=== PATIENT | female | born 1965 | race Caucasian/White ===

== ENCOUNTER 2018-08-30 12:14 | Day surgery (SDC) | payer OTHER ==
[~2018-08-30] VITALS: Ht 160 cm; Wt 111.1 kg
[~2018-08-30 12:14] MED LIST: BUPR150ER PO; HYDACE25S PR; LISI20 PO; Multivitamin1 EAC1 PO; Prinivil10 MG PO; Toprol Xl50 MG PO
== END 2018-08-30 14:32 | disposition home or self-care (01) ==
LOC: ORSCSDS 12:14
PROVIDERS: Internal Medicine Gastroenterology
PROC: 0DBM8ZX Excision of Descending Colon, Via Natural or Artificial Opening Endoscopic, Diagnostic (ICD-10-PCS; principal; 2018-08-30 13:45)
PROC: 0DBE8ZX Excision of Large Intestine, Via Natural or Artificial Opening Endoscopic, Diagnostic (ICD-10-PCS; principal; 2018-08-30 13:45)
DX: R19.4 Change in bowel habit (principal); D12.4 Benign neoplasm of descending colon; K64.8 Other hemorrhoids; K57.30 Diverticulosis of large intestine without perforation or abscess without bleeding; Z83.71 Family history of colonic polyps; E78.00 Pure hypercholesterolemia, unspecified; I10 Essential (primary) hypertension; E66.01 Morbid (severe) obesity due to excess calories; Z68.41 Body mass index [BMI] 40.0-44.9, adult; F17.210 Nicotine dependence, cigarettes, uncomplicated; Z79.899 Other long term (current) drug therapy
CPT/HCPCS: 88305; J7120

== ENCOUNTER 2021-11-20 10:48 | Inpatient (IN) | payer OTHER ==
[~2021-11-20] VITALS: Ht 162.6 cm; Wt 48.9 kg
[~2021-11-20 10:48] MED LIST changes: -LISI20 PO
[2021-11-20 11:28] LABS: Source, Urine Fem Cath
[2021-11-20 11:31] LABS: Appearance, Urine Clear (Clear); Blood, Urine 1+ (Neg); Color, Urine Amber (P-Yellow); Glucose Qualitative, Urine Neg (Neg); Ketones, Urine 2+ (Neg); Leukocyte Esterase, Urine 1+ (Neg); Nitrite, Urine Neg (Neg); Protein, Urine 2+ (Neg); Specific Gravity, Urine 1.025 (1.003-1.022); Urobilinogen, Urine 2+ (Normal)
[2021-11-20 11:44] LABS: Alanine Aminotransfer (ALT/SGP 37 U/L (12-78); Albumin, Blood 2.5 g/dL (3.4-5.0); Albumin/Globulin Ratio 0.7 (0.8-1.8); Alk Phos 75 U/L (50-136); Anion Gap 10 mmol/L (6-16); Aspartate Aminotrans (AST/SGOT 45 U/L (12-37); Bilirubin, Total 1.5 mg/dL (0.1-1.0); Blood Urea Nitrogen 20 mg/dL (8-24); Bun/Creatinine Ratio 36.4 (12.0-20.0); CO2, Blood 25 mmol/L (21-32); Calcium, Blood 9.3 mg/dL (8.5-10.1); Chloride, Blood 109 mmol/L (98-108); Creatinine, Blood 0.55 mg/dL (0.40-1.00); Ethanol (Alcohol), Blood, Med <3 mg/dL; Globulin, Blood 3.6 g/dL (2.2-4.0); Glomerular Filtration Rate >60 (60-); Glucose, Blood 83 mg/dL (70-99); Potassium, Blood 3.3 mmol/L (3.5-5.5); Sodium, Blood 144 mmol/L (136-145); Total Protein, Blood 6.1 g/dL (6.4-8.2)
[2021-11-20 12:00] LABS: Bilirubin, Urine 2+ (Neg)
[2021-11-20 12:04] LABS: Bacteria Rare /hpf; Red Blood Cells, Urine 0-2 /hpf (0-2); Squamous Epithelial Cells Few /hpf (Few)
[2021-11-20 12:05] LABS: Mucus Light (0-Heavy)
[2021-11-20 12:37] LABS: U Amphetamine Screen Not Detected; U Barbituate Screen Not Detected; U Benzodiazapine Screen Not Detected; U Buprenorphine Screen Not Detected; U Cannabinoids Screen DETECTED; U Cocaine Screen Not Detected; U Methadone Screen Not Detected; U Methamphetamine Screen Not Detected; U Opiates Screen Not Detected; U Oxycodone Screen Not Detected; U Phencyclidine Screen Not Detected; U Propoxyphene Screen Not Detected
[2021-11-20 13:05] LABS: Influenza A, PCR NEGATIVE (NEGATIVE); Influenza B, PCR NEGATIVE (NEGATIVE); Resp Syncytial Virus, PCR NEGATIVE (NEGATIVE)
[2021-11-20 13:09] LABS: SARS-Cov-2 (COVID-19) PCR, MMC POSITIVE (NEGATIVE)
[2021-11-20 13:10] LABS: BASOPHILS ABSOLUTE AUTO 0.03 K/mm3 (0.00-0.23); BASOPHILS PERCENT AUTO 1 % (0-2); EOSINOPHILS ABSOLUTE AUTO 0.04 K/mm3 (0.00-0.68); EOSINOPHILS PERCENT AUTO 1 % (0-6); Hematocrit 31.2 % (33.0-51.0); Hemoglobin 10.6 g/dL (11.5-16.0); IMMATURE GRAN ABSOLUTE AUTO 0.02 K/mm3 (0.00-0.10); IMMATURE GRAN PERCENT AUTO 0 % (0-1); LYMPHOCYTES ABSOLUTE AUTO 0.94 K/mm3 (0.84-5.20); LYMPHOCYTES PERCENT AUTO 15 % (21-46); MONOCYTES ABSOLUTE AUTO 0.52 K/mm3 (0.16-1.47); MONOCYTES PERCENT AUTO 9 % (4-13); Mean Corpuscular HGB 36.2 pg (26.0-34.0); Mean Corpuscular Volume 107 fL (80-100); Mean Platelet Volume 9.6 fL (9.1-12.4); NEUTROPHILS ABSOLUTE AUTO 4.56 K/mm3 (1.96-9.15); NEUTROPHILS PERCENT AUTO 75 % (41-73); Platelet Count 189 K/mm3 (150-400); Red Blood Cell Count 2.93 M/mm3 (3.80-5.20); White Blood Cell Count 6.11 K/mm3 (4.00-11.30)
[2021-11-20 13:20] LABS: Thyroid Stimulating Hormone 1.72 uIU/mL (0.360-4.800)
[2021-11-20 13:54] LABS: International Normalized Ratio 0.98; Prothrombin Time Results 10.3 Sec (9.7-11.5)
--- NOTE | 2021-11-20 18:05 | NUR ---
PT ASSESSED FOR SI PART OF ADMISSION ASSESSMENT. PT TEARY EYED SHE ADMITTED TO WANTING TO "SHOOT HERSELF WITH A GUN." PT'S SISTER IN LAW IN ROOM AT THE TIME, BOTH CRYING. PATIENT THEN TURNED TO HER SISTER IN LAW AND SAID "I AM NOT GOING TO DO IT, I AM NOT GOING TO DO IT." CHARGE NURSE ISABEL ORELLANA NOTIFED AT 1816 WHO IS ARRANGING A SITTER FOR THE TIME BEING.
--- NOTE | 2021-11-20 19:50 | NUR ---
SHIFT SUMMARY/ ADMISSION NOTE PT ARRIVED TO FLOOR VIA GURNEY AT ABOUT 1730 WITH HOSTAGE NEGOTIATOR ESCORT. PT STAND PIVOT TRANSFER TO BED IN ROOM, VITALS AND WEIGHT MEASURED. SEE PREVIOUS NOTE REGARDING SI. DR QUINONES CALLED TO BE NOTIFIED OF SI, NO ANSWER, CHARGE NURSE NOTIFIED. PATIENT'S SISTER IN LAW IN ROOM FOR ADMISSION ASSESSMENT, EAGER FOR UPDATE FROM PHYSICAN. SISTER IN LAW IRRITABLE WITH NOHEMY VILLAFUERTE BUT THEN APPOLOGIZED. SHE ALSO STATED THAT THE SI IS A VERY SENSITIVE TOPIC AND THAT SHE DIDNT WANT OTHER FAMILY MEMEBERS TO KNOW. HOWEVER CHRISTO Robins STATED THAT AFTER THIS NURSE LEFT ROOM, PATIENT STATED THAT SHE WANTED TO "SHOOT HERSELF WITH A GUN." MULTIPLE TIMES. CHARGE NURSE AWARE. IV PATENT AND INFUSING PER EMAR. REPORT GIVEN TO MEDICAL RESEARCHER NURSE WHO ASSUMES CARE AT 1915.
--- NOTE | 2021-11-20 20:33 | NUR ---
PATIENT CONTINUES TO HAVE SUICIDAL IDEATIONS, REPORTING THESE THOUGHTS COME AND GO. PLAN TO USE A GUN AT HOME, PT REPORTS ONLY HER AND HER SON HAVE THE ACCESS TO THE GUN SAFE. PT ALSO REPORTS PLANS FOR THE GUNS TO BE REMOVED AT THE HOUSE. PATIENT REPORTS INCREASED LIFE STRESSORS AND DEPRESSION CAUSING HER TO HAVE SUICIDAL THOUGHTS. SITTER AT BEDSIDE, HIGH RISK ITEMS REMOVED FROM ROOM, PT PLACED ON CAMERA.
--- NOTE | 2021-11-21 03:33 | NUR ---
SHIFT SUMMARY HIGH RISK SUICIDE PROTOCOL FOLLOWED THROUGHOUT SHIFT. PT REPORTS SI IDEATIONS CONTINUING. SAFETY CHECKS COMPLETED, 1:1 SITTER IN ROOM, CAMERA ACTIVATED, HIGH RISK OBJECTS AND PERSONAL BELONGINGS REMOVED FROM ROOM. COMPLETED BEDSIDE SHIFT ASSESSMENT- INFORMED TO CONTINUE HIGH RISK SI PROTOCOL PT CONTINUES TO EXPRESS VISUAL HALLUCINATIONS WHEN AWAKE. ABLE TO REST COMFORTABLY DURING THIS SHIFT. STAND BY ASSIST BEDSIDE COMMODE. TOLERATING PO MEDICATIONS AND PO CLEAR LIQUIDS.
[2021-11-21 05:55] LABS: Hematocrit 40.7 % (33.0-51.0); Hemoglobin 13.6 g/dL (11.5-16.0); Mean Corpuscular HGB 35.4 pg (26.0-34.0); Mean Corpuscular HGB Conc 33.4 g/dL (31.5-36.5); Mean Corpuscular Volume 106 fL (80-100); Mean Platelet Volume 9.7 fL (9.1-12.4); Platelet Count 259 K/mm3 (150-400); RDW Standard Deviation 54.7 fL (35.1-46.3); Red Blood Cell Count 3.84 M/mm3 (3.80-5.20); White Blood Cell Count 7.61 K/mm3 (4.00-11.30)
[2021-11-21 06:04] LABS: Alanine Aminotransfer (ALT/SGP 27 U/L (12-78); Albumin, Blood 2.2 g/dL (3.4-5.0); Albumin/Globulin Ratio 0.6 (0.8-1.8); Alk Phos 67 U/L (50-136); Anion Gap 3 mmol/L (6-16); Aspartate Aminotrans (AST/SGOT 30 U/L (12-37); Bilirubin, Total 0.8 mg/dL (0.1-1.0); Blood Urea Nitrogen 15 mg/dL (8-24); Bun/Creatinine Ratio 25.1 (12.0-20.0); CO2, Blood 31 mmol/L (21-32); Calcium, Blood 8.7 mg/dL (8.5-10.1); Chloride, Blood 109 mmol/L (98-108); Globulin, Blood 3.4 g/dL (2.2-4.0); Glomerular Filtration Rate >60 (60-); Glucose, Blood 83 mg/dL (70-99); Sodium, Blood 143 mmol/L (136-145); Total Protein, Blood 5.6 g/dL (6.4-8.2)
--- NOTE | 2021-11-21 06:35 | NUR ---
NURSE NOTE: 0500-YUSEF MD INFORMED OF PATIENT HAVING URINARY RETENTION, BLADDER SCAN READING 554 ML RETAINING. STRAIGHT CATH COMPLETED 700 ML URINE DRAINED VIA STRAIGHT CATH. TOLERATED WELL URINE DARK IN APPEARANCE- TEA COLORED. 0620-MD NOTIFIED OF TEA COLOR URINE, NO NEW ORDERS AT THIS TIME. MD GAVE VERBAL TO ENCOURAGE PT TO DRINK PO FLUIDS.
--- NOTE | 2021-11-21 09:12 | NUR ---
SI ASSESSMENT PATIENT STATES SHE DOES NOT HAVE ANY CURRENT THOUGHTS TO END HER LIFE. PATIENT FEELS "SHE HAS NO PURPOSE LEFT SINCE LOSING HER SHILPI, BUT DOES NOT WANT TO KILL HERSELF". DR. Gabriela JAY NOTIFIED. SHE ALSO STATED SHE ASKED HER SON TO CHANGE THE GUN LOCKS AND CLEAR OUT THE HOUSE OF DANGEROUS THINGS. SON CONFIRMED HE DID THIS.
--- NOTE | 2021-11-21 18:19 | NUR ---
SHIFT SUMMARY PATIENT DENIES PAIN, NAUSEA, AND SHORTNESS OF BREATH. PATIENT IS A SBA TO THE BATHROOM. PATIENT IS HIGH SI AND HAS A 1:[address] KUMAR SENT. PATIENT DENIES ANY SUICIDUAL IDEATION AND HAD SON CHANGE LOCK ON GUN SAFE AT THEIR HOUSE. CONFIRMED THIS WITH SON. PATIENT REPORTS TROUBLE SWALLOWING, DR. NEGRON NOTIFIED. NEW ORDERS FOR SPEECH EVAL. PATIENT CIWA THIS AFTERNOON WAS 10. MEDICATED PER EMAR. PATIENT SLEPT AFTER. PATIENT HAD POOR PO INTAKE. NEW IV PLACED THIS EVENING. PATIENT DAUGHTER IN THE ROOM VISITING, WHEN SHE FAINTED THEN HAD A WITNESSED SIEZURE. PATIENT DAUGHTER TAKEN TO ER VIA WHEELCHAIR BY STAFF. PATIENT IS PLEASANT AND COOPERATIVE WITH CARE.
--- NOTE | 2021-11-21 21:10 | NUR ---
NURSE NOTE: UPON ASSESSMENT PATIENT HAVING INCREASED LETHARGY/DROWSINESS, RESPONDING TO TOUCH AND OCCASSIONAL VERBAL STIMULATION. BP 119/89 PULSE 87 TEMP 98.2 RESPIRATIONS ELEVATED AT 30 PER MINUTE- PATIENT SNORING, WHEN PATIENT STIMUALTED ENOUGH TO ANSWER ORIENTATION QUESTIONS SHE WAS ABLE TO RESPOND APPROPRIATELY TO DATE, PLACE, SELF BUT DID NOT RESPOND TO WHY SHE WAS IN THE HOSPITAL OR TO THE SUICIDE SCREENING ASSESSMENT. HELD 2100 SCHEDULED MEDS DUE TO ASPRIATION RISK WITH INCREASED LETHARGY.
--- NOTE | 2021-11-22 03:47 | NUR ---
SHIFT SUMMARY: BEGINNING OF SHIFT PT PRESENTED WITH INCREASED LETHARGY/DROWSINESS, RESPONDING TO TOUCH AND SOME VERBAL STIMULI. AT THAT TIME VITALS WERE STABLE OTHER THAN RESPIRATORY RATE 30 PER MINUTE WHILE SLEEPING. MD WAS NOTIFIED OF PATIENTS INCREASED DROWSINESS- INFORMED TO MONITOR AND NOTIFY FOR CHANGES. THROUGHOUT THE REMAINING SHIFT PT WAS ABLE TO AROUSE EASILY TO VOICE. A/O X3 DISORIENTED TO TIME. STAND BY ASSIST WITH SITTER TO BEDSIDE COMMODE. NO HALLUCINATIONS NOTED DURING THIS SHIFT.
[2021-11-22 05:49] LABS: BASOPHILS ABSOLUTE AUTO 0.04 K/mm3 (0.00-0.23); BASOPHILS PERCENT AUTO 0 % (0-2); EOSINOPHILS ABSOLUTE AUTO 0.15 K/mm3 (0.00-0.68); EOSINOPHILS PERCENT AUTO 2 % (0-6); Hematocrit 38.4 % (33.0-51.0); IMMATURE GRAN ABSOLUTE AUTO 0.03 K/mm3 (0.00-0.10); IMMATURE GRAN PERCENT AUTO 0 % (0-1); LYMPHOCYTES ABSOLUTE AUTO 1.97 K/mm3 (0.84-5.20); LYMPHOCYTES PERCENT AUTO 22 % (21-46); MONOCYTES ABSOLUTE AUTO 0.66 K/mm3 (0.16-1.47); MONOCYTES PERCENT AUTO 7 % (4-13); Mean Corpuscular HGB 35.5 pg (26.0-34.0); Mean Corpuscular HGB Conc 33.9 g/dL (31.5-36.5); Mean Corpuscular Volume 105 fL (80-100); Mean Platelet Volume 10.2 fL (9.1-12.4); NEUTROPHILS ABSOLUTE AUTO 6.04 K/mm3 (1.96-9.15); NEUTROPHILS PERCENT AUTO 68 % (41-73); Platelet Count 237 K/mm3 (150-400); RDW Coefficient Variation 14.1 % (11.7-14.2); RDW Standard Deviation 54.6 fL (35.1-46.3); Red Blood Cell Count 3.66 M/mm3 (3.80-5.20); White Blood Cell Count 8.89 K/mm3 (4.00-11.30)
[2021-11-22 06:21] LABS: Anion Gap 6 mmol/L (6-16); Blood Urea Nitrogen 10 mg/dL (8-24); Bun/Creatinine Ratio 17.7 (12.0-20.0); CO2, Blood 26 mmol/L (21-32); Calcium, Blood 8.6 mg/dL (8.5-10.1); Chloride, Blood 110 mmol/L (98-108); Creatinine, Blood 0.57 mg/dL (0.40-1.00); Glomerular Filtration Rate >60 (60-); Glucose, Blood 86 mg/dL (70-99); Potassium, Blood 3.5 mmol/L (3.5-5.5); Sodium, Blood 142 mmol/L (136-145)
--- NOTE | 2021-11-22 17:44 | NUR ---
SHIFT SUMMARY PATIENT DENIES PAIN. PATIENT MEDICATED X1 FOR NAUSEA/HEARTBURN. PATIENT DENIES SHORTNESS OF BREATH. PATIENT IS A SBA TO THE BATHROOM. PATIENT IS A HIGH SI WITH A 1:1 SITTER. PATIENT HAD MANY VISITORS COMING AND GOING TODAY. PER NURSING PRODUCTION SUPPORT DEVELOPER, DOOR CAN BE OPEN TO PATIENT ROOM. PATIENT HAD SPEECH EVAL TODAY. NEW ORDERS FOR [facility] SOFT DIET AND MEDICATIONS WITH APPLESAUCE. PATIENT HAS POOR PO INTAKE. NEW ORDERS FOR TELEPSYCH. PATIENT IS PLEASANT AND COOPERATIVE WITH CARE.
--- NOTE | 2021-11-23 05:15 | NUR ---
SHIFT SUMMARY: PSYCH CONSULT COMPLETED, MD RECOMMENDED PT TO REMAIN HIGH RISK FOR SI TILL MD EVALUATION TODAY. 1:1 SITTER AT BEDSIDE, CAMERA MONITORING. PT A/O X4 REPORTS OCCASSIONAL HALLUCINATIONS OF A CAT IN THE CORNER OF THE ROOM. OTHERWISE PT REMAINS CALM, RESTING COMFORTABLE. CIWA <8 THROUGHOUT SHIFT
--- NOTE | 2021-11-23 17:31 | NUR ---
SHIFT SUMMARY PATIENT DENIES PAIN, MEDICATED X1 FOR NAUSEA/HEARTBURN, DENIES SHORTNESS OF BREATH. PATIENT IS A SBA TO THE BATHROOM. PATIENT IS A HIGH SI WITH A 1:1 SITTER. PATIENT HAD MULTIPLE FAMILY MEMBERS THAT VISIT THROUGHOUT THE DAY. PATIENT IS EATING VERY LITTLE. PATIENT REPORTS HEARTBURN WHENEVER SHE EATS. PATIENT IS URINATING ON OWN. PATIENT CIWA HAVE BEEN BELOW 8 ALL SHIFT. PATIENT IS PLEASANT AND COOPERATIVE WITH CARE.
--- NOTE | 2021-11-24 00:51 | NUR ---
SUICIDE ASSESSMENT: PATIENT REPORTS NO SUICIDE IDEATIONS AT THIS TIME. DISCUSSED WITH SENIOR ELECTRICAL PROJECT MANAGER. PATIENT WILL REMAIN ON HIGH SUICIDE PRECAUTIONS UN TIL SEEM BY DR KUMAR TOMORROW.
--- NOTE | 2021-11-24 16:01 | NUR ---
PATIENT ALERT AND ORIENTED X 3-4. ABLE TO VERBALIZE NEEDS, NO SOB, NO DISTRESS, DENIES PAIN. CONTUNUES ON HIGH SI WITH 1:1 SITTER. NO SUICIDAL IDEATION AT THIS TIME. PATIENT C/O ACID REFLUX, PROTONIX GIVEN ORDERED. CIWA HAS BEEN 0. PER ST PATIENT WILL CONTINUE ON MECHANICAL SOFT DIET/THIN LIQUIDS, PILL WHOLE WITH APPESAUCE.
--- NOTE | 2021-11-24 19:35 | NUR ---
DR Pathakuff PSYCH in & reassessed PT changed to moderate level. Daily SI asked & PT says Son has removed Guns from home.She is calm cooperative 1 to 1 continues & remote camera monitor. rx seroquel 25 mg at HS.
--- NOTE | 2021-11-24 22:27 | NUR ---
DR Pathakuff in to reeval PT at change of shift to decrease to moderate suicide risk. Starts PT on seroquel 25 mg po at HS & PT resting after rx administration. She also had DR Jonathan macdonald for WT loss 150 lb reported in year inintentional per PT report & dysphagia with reflux even with HOB up & mech soft diet small pills etc. DR Castillo makes PT NPO at MN excepts meds & water then NPO at noon for EGD. PT continues line of sight for moderate suicide risk
--- NOTE | 2021-11-25 05:23 | NUR ---
ALERT, ABLE TO MAKE NEEDS KNOWN. 1:1 SITTER AT BEDSIDE. CIWA SCORING 3. SLEPT WELL THROUGH NIGHT. 1 ASSIST WITH WALKER TO TOILET. SAFETY MAINTAINED, CALL HENRY IN REACH.
--- NOTE | 2021-11-25 05:30 | NUR ---
56 YEAR OLD fEMALE WITH ACUTE METABOLIC ENCEPHALOPATHY & SI WITH UNTREATED DEPRESSION SEE'S MD KUMAR FOR PSYCH EVAL. HE LOWERS SUICIDE RISK FROM HIGH TO MODERATE & HE RX SEROQUEL 25 MG AT HS. PT VERBALIZED SHE WAS ON WELLBUTRIN FOR SMOKING CESSATION.SHE HAS Q 4 HOURS CIWA WITH LOW SCORES. SHE SLEPT AFTER SEROQUEL UNTIL DR GUILLEN CONSULT FOR REPORTED 150 LB WT LOSS OVER A YEAR & DYSPHAGIA. HE MAKES NPO EXCEPT WATER AT MN & STRICT NPO AT NOON FOR PLANNED EGD. PT SAYS SHE HAD WANTED TO KILL HERSELF BY USE OF FIREARM BUT HER SON HAS REMOVED WEAPONS. REPORTED ON DAY SHIFT PT HAD FAMILY VISIT. NONE THIS SHIFT BUT PT TALKS ON PHONE. IRRITABLE THIS AM WANTING ITEMS WHICH ARE PERSONAL.
--- NOTE | 2021-11-25 18:37 | NUR ---
SHIFT SUMMARY PATIENT IS ALERT AND ORIENTED X3-4. PATIENT HAS HAD LOW CIWA SCORES ALL SHIFT. PATIENTS PLANNED EGD HAS BEEN MOVED UNTIL TOMORROW SO ISOLATION FOR COVID CAN END. PATIENT HAS BEEN HAD A SITTER 1-[address] KUMAR EVALUTATED PATIENT AND HAD THE SI PRECAUTIONS DISCONTINUED AND SITTER NO LONGER NEEDED. PATIENT IS NPO AFTER MIDNIGHT EXCEPT FOR WATER AND NOTHING AFTER 11AM. SI PRECAUTIONS HAVE BEEN MAINTAINED AND ASSESSED UNTIL DCD. NO ACUTE EVENTS THIS SHIFT. VITAL SIGNS REVIEWED. WILL MONITOR UNTIL SHIFT CHANGE.
--- NOTE | 2021-11-26 05:12 | NUR ---
ALERT AND ORIENTED X'S 4. NO ACUTE DISTRESS NOTED. RESPIRATIONS EVEN AND UNLABORED. REMAINS ON CIWA, SCORING NO GREATER THAN 2. SLEPT WELL THROUGH NIGHT. NPO EXCEPT MEDS. STAND BY ASSIST FOR TRANSFERS. SAFETY MAINTAINED, CALL HENRY IN REACH.
--- NOTE | 2021-11-26 12:08 | NUR ---
PATIENT ALERT AND ORIENTED X 3-4. LOW CIWA SCORES THIS MORNING. CONTINUES ON ISOLATION FOR COVID. PATIENT HAD ICE CHIPS AND WATER TILL 11AM AND SHE IS NPO AT THIS TIME D/T EGD. MORNING MEDICATIONS ADMINISRATED, VITAL SIGNS WNL. DENIES PAIN OR DISCOMFORT. WILL CONTINUE TO MONITOR.
--- NOTE | 2021-11-26 12:51 | NUR ---
SPOKE WITH JESÚS THOMPSON AND LEARNED PT IS STILL IN ISOLATION FOR COVID. SPOKE WITH DR. GIMENEZ, ANESTHESIOLOGIST AND OBTAINED VERBAL ORDER TO DO A RAPID COVID TEST SINCE COVID TEST ON 11/20 WAS A PCR TEST AND PT REMAINS ASYMPTOMATIC. JESÚS WEBB SENT TO PT ROOM TO DO RAPID TEST.
--- NOTE | 2021-11-26 15:16 | NUR ---
PT TRANSFERED TO [facility] VIA [facility] BY JESÚS GUALLPA. History, Chart, Medications and Allergies reviewed before start of procedure. Lungs clear T/O to Auscultation. Patient confirms NPO status and agrees with scheduled surgery. Pre-Op teaching done. Pt verbalizes understanding.
--- NOTE | 2021-11-26 15:21 | NUR ---
11/26/21 1521 Yaakov [place] See Anesthesia record DR NGUYEN. Bite Block Placed. Patient to ENDO 1. History, Chart, Medications and Allergies reviewed before start of procedure. MONITOR INTACT WITH CONTINUOUS PULSE OXIMETRY AND INTERMITTENT BP. O2 VIA N/C INTACT THROUGHOUT SEDATION/PROCEDURE.
--- NOTE | 2021-11-27 04:56 | NUR ---
SHIFT Alert and oriented x's 4. No acute distress noted. Respirations even and unlabored. 1 assist to BSC, gait unsteady. CIWA, scoring no greater than 3. Safety maintained, call lawton in reach.
[2021-11-27] MEDS ORDERED: BUPR150ER PO (10:50)
[2021-11-27] MEDS ORDERED: LACT10SY PO (10:51)
[2021-11-27] MEDS ORDERED: NICO21TP TOP (10:53)
[2021-11-27] MEDS ORDERED: QUET100 PO (10:54)
[2021-11-27] MEDS ORDERED: OMEP20ER PO (10:54)
--- NOTE | 2021-11-27 12:55 | NUR ---
PATIENT ALERT AND ORIENTED X 3-4. LOW CIWA 0 THIS MORNING. CONTINUES ON ISOLATION FOR COVID. MORNING MEDICATIONS ADMINISTRATED ORDERED, VITAL SIGNS WNL. ON REGULAR DIET/THIM LIQUIDS, TOLERATING WELL. DENIES PAIN OR DISCOMFORT.
== END 2021-11-27 15:25 | disposition home or self-care (01) | DRG 441 ==
LOC: ER 10:48 → MEDS 10:49 → ER 16:30 → MEDS 17:19
PROVIDERS: Emergency Medicine; Internal Medicine; Internal Medicine Gastroenterology; ADMIT Internal Medicine
PROC: 8E0ZXY6 Isolation (ICD-10-PCS; principal; 2021-11-21)
PROC: 0D758ZZ Dilation of Esophagus, Via Natural or Artificial Opening Endoscopic (ICD-10-PCS; 2021-11-26)
PROC: 0D748ZZ Dilation of Esophagogastric Junction, Via Natural or Artificial Opening Endoscopic (ICD-10-PCS; 2021-11-26 11:15)
DX: K72.00 Acute and subacute hepatic failure without coma (principal); G92.8 Other toxic encephalopathy; U07.1 COVID-19; R45.851 Suicidal ideations; K22.10 Ulcer of esophagus without bleeding; E44.0 Moderate protein-calorie malnutrition; Z68.1 Body mass index [BMI] 19.9 or less, adult; K92.0 Hematemesis; K76.6 Portal hypertension; F10.20 Alcohol dependence, uncomplicated; Z88.0 Allergy status to penicillin; Z88.6 Allergy status to analgesic agent; Z91.030 Bee allergy status; E87.6 Hypokalemia; I10 Essential (primary) hypertension; R13.10 Dysphagia, unspecified; E78.5 Hyperlipidemia, unspecified; F32.A Depression, unspecified; Z98.890 Other specified postprocedural states; Z88.1 Allergy status to other antibiotic agents; Z79.899 Other long term (current) drug therapy; D64.9 Anemia, unspecified; K31.89 Other diseases of stomach and duodenum
CPT/HCPCS: 0241U; 36415; 51701; 70450; 80048; 80053; 81001; 82140; 82550; 82607; 82746; 83735; 84443; 85025; 85027; 85610; 85730; 87086; 92526; 92610; 93005; 93010; 96365; 96366; 96368; 96372; 97129; 97165; 97535; 99285-25; A9270; C1726; C9113; G0378; G0480; J1650; J2060; J3411; J3475; J3480; J7030; J7042; J7120; P9612